=== PATIENT | male | born 2005 | race Caucasian/White ===

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

== ENCOUNTER 2023-07-22 12:51 | Emergency (ER) | payer BC, SELFPAY ==
[2023-07-22 13:14] VITALS: BP 122/58; PULSE 64; RESP 18; TEMP 36.8; O2SAT 100
--- NOTE | 2023-07-22 13:15 | ED.SKABFB ---
HPI - Skin/Abscess/Foreign Bdy General Chief complaint: Urogenital-Male Stated complaint: rash Time Seen by Provider: 07/22/23 13:15 Source: patient Mode of arrival: ambulatory Limitations: no limitations History of Present Illness HPI narrative: Gary is a 18-year-old male patient presenting to the clinic today with complaints of a rash that developed 1-2 days ago on his penis. He reports he noticed some discomfort tingling pain to his penis the day before and noticed of the vesicular rash last night. Has been treated for genital herpes in the past however he has not had a positive test for this. Related Data Allergies Allergy/AdvReac Type Severity Reaction Status Date / Time amoxicillin Allergy Rash Verified 07/22/23 13:17 Review of Systems Review of Systems: Pertinent positives per HPI. Patient denies any fever, chills, rash, headache, visual changes, dizziness, cough, runny nose, sore throat, shortness of breath, chest pain, palpitations, nausea, vomiting, diarrhea, constipation, abdominal pain, or any urinary issues. PMFSH Past Medical History Medical History Attention Deficit Hyperactivity Disorder (ADHD) Surgical History Surgical History No history of previous surgery Social History Social History Smoking status: Never smoker Second hand tobacco smoke exposure: No Alcohol intake: current Drinks per week: 2 Substance use: never Substance use type: does not use Living arrangements: with roommate(s) Occupation/Education: occupation Gender identity (if verbalized by the patient): Male Sexual Orientation (if Verbalized by the Patient): Straight or Heterosexual Comments At the time of my signature, I reviewed and agree with the nursing past medical, surgical, social, and family history. There is no relevant family history pertinent to the patient complaint. Exam Narrative: General: Well-developed, well nourished, in no apparent distress. Head: Normocephalic, atraumatic. Cardio: Regular rate and rhythm, s1 and s2 normal, no murmur appreciated. Resp: Clear to auscultation bilaterally, no rhonchi, rales, wheezing or rubs. Abdomen: Soft, pliable, bowel sounds present in all quadrants, non-tender to palpation, no organomegly, no CVAT tenderness. : Normal circumcised male, penile shaft with vesicular painful lesions with clear fluid to the top and left lateral side. No penile discharge Course Course Emergency Course: Portions of this record may have been created with voice recognition software. Level of Care: Express Care Visit Vital Signs Vital signs: Vital signs reviewed MDM - Skin/Abscess/Foreign Bdy MDM Narrative Medical decision making narrative: At the time of visit patient is resting on the exam table. I suspect patient has genital herpes infection. Will send in prescription for acyclovir and supportive measures were discussed with the patient he voiced understanding discharge instructions and agrees to treatment plan. Differential Diagnosis Differential diagnosis: Likely herpes zoster, cellulitis, insect bites, contact dermatitis and other (Genital herpes) Discharge Plan Discharge Clinical Impression: Genital herpes simplex Patient Disposition: Home, Self-Care Condition: Stable Instructions: Antibiotic Form, Genital Herpes Infection (ED) Additional Instructions: Take acyclovir as prescribed No intercourse until rash has resolved May take Tylenol/Motrin as needed for pain Follow-up with your PCP as needed Prescriptions: New acyclovir 400 mg tablet 400 mg PO TID 7 Days Qty: 21 0RF Follow-up/Referrals: PHYSICIAN,FIRE MARSHAL [Primary Care Provider] - Time of Disposition: 13:19 Quality NIHSS Nursing Documentation ED NIHSS nursing documentation: reviewed/ag
== END 2023-07-22 13:27 | disposition home or self-care (01) ==
PROVIDERS: Emergency Provider Nurse Practitioner Family
DX: A60.00 Herpesviral infection of urogenital system, unspecified (principal)
CPT/HCPCS: 99213; G0463